=== PATIENT | female | born 1985 | race Caucasian/White ===

== ENCOUNTER 2016-11-14 16:49 | Emergency (ER) | payer OTHER ==
[~2016-11-14] VITALS: Ht 160 cm; Wt 69.4 kg
[2016-11-14 19:28] VITALS: BP 144/76
--- NOTE | 2016-11-14 20:18 | NUR ---
PATIENT PRESENTS TO ED WITH SWELLING TO LEFT EYE SINCE SUNDAY . PT STATES SHE VISITED URGENT CARE ON SUNDAY AND WAS PRESCRIBED DOXOCYCLINE/BENADRYL/IBUPROFEN . DENIES N/V/D; SKIN IS PINK/WARM/DRY; AAOX4 WITH EVEN AND STEADY GAIT; LUNGS CLEAR BL; HR EVEN AND REGULAR; PT DENIES ANY FEVER, CP, SOB, OR COUGH AT THIS TIME; PATIENT STATES PAIN OF 0/10 AT THIS TIME; VSS; PATIENT POSITIONED FOR COMFORT; HOB ELEVATED; BEDRAILS UP X2; BED DOWN. ER MD MADE AWARE OF PT STATUS.
[2016-11-14 20:53] VITALS: BP 144/76
--- NOTE | 2016-11-14 20:54 | NUR ---
Patient discharged with v/s stable. Written and verbal after care instructions given and explained. Patient alert, oriented and verbalized understanding of instructions. Ambulatory with steady gait. All questions addressed prior to discharge. ID band removed. Patient advised to follow up with PMD. Rx of BACTRIM DS 800MG-160MG PO BID AND KEFLEX 500MG PO FOUR TIMES A DAY given. Patient educated on indication of medication including possible reaction and side effects. Opportunity to ask questions provided and answered.
== END 2016-11-14 20:54 | disposition home or self-care (01) ==
LOC: MED 16:49
DX: H00.034 Abscess of left upper eyelid (principal)